=== PATIENT | female | born 1950 | race Caucasian/White ===

== ENCOUNTER 2017-08-27 08:39 | Outpatient (CLI) | payer OTHER ==
[~2017-08-27 08:39] MED LIST: SYNTHROID112 MCG
== END 2017-08-27 08:48 | disposition home or self-care (01) ==
LOC: LAB 08:39
DX: I10 Essential (primary) hypertension (principal); E78.89 Other lipoprotein metabolism disorders; E03.8 Other specified hypothyroidism; K21.9 Gastro-esophageal reflux disease without esophagitis

== ENCOUNTER 2017-08-27 11:55 | Outpatient (CLI) | payer OTHER | END 2017-08-27 12:10 | disposition home or self-care (01) | LOC: MAMO-SONO 11:55 | DX: Z12.31 Encounter for screening mammogram for malignant neoplasm of breast (principal); E78.89 Other lipoprotein metabolism disorders; E03.8 Other specified hypothyroidism; I10 Essential (primary) hypertension; K21.9 Gastro-esophageal reflux disease without esophagitis ==

== ENCOUNTER 2019-02-17 13:20 | Outpatient (CLI) | payer OTHER | END 2019-02-17 13:26 | disposition home or self-care (01) | LOC: MAMO-SONO 13:20 | DX: E78.49 Other hyperlipidemia (principal); E03.8 Other specified hypothyroidism; K21.9 Gastro-esophageal reflux disease without esophagitis; I11.9 Hypertensive heart disease without heart failure; E78.3 Hyperchylomicronemia; E46 Unspecified protein-calorie malnutrition; E44.0 Moderate protein-calorie malnutrition; Z12.31 Encounter for screening mammogram for malignant neoplasm of breast ==

== ENCOUNTER 2020-02-24 13:44 | Outpatient (CLI) | payer OTHER | END 2020-02-24 13:54 | disposition home or self-care (01) | LOC: MAMO-SONO 13:44 | PROVIDERS: ATTEND Internal Medicine | DX: Z12.31 Encounter for screening mammogram for malignant neoplasm of breast (principal); E03.8 Other specified hypothyroidism; E78.89 Other lipoprotein metabolism disorders; K21.9 Gastro-esophageal reflux disease without esophagitis; I11.9 Hypertensive heart disease without heart failure; E78.3 Hyperchylomicronemia; E46 Unspecified protein-calorie malnutrition; E44.0 Moderate protein-calorie malnutrition; E78.49 Other hyperlipidemia ==

== ENCOUNTER 2020-06-14 10:11 | Outpatient (CLI) | payer OTHER | END 2020-06-14 10:13 | disposition home or self-care (01) | LOC: NUCLEAR 10:11 | PROVIDERS: ATTEND Internal Medicine | DX: M81.0 Age-related osteoporosis without current pathological fracture (principal) ==

== ENCOUNTER 2021-03-15 11:01 | Outpatient (CLI) | payer OTHER | END 2021-03-15 11:11 | disposition home or self-care (01) | LOC: MAMO-SONO 11:01 | PROVIDERS: ATTEND Emergency Medicine Pediatric Emergency Medicine | DX: R92.1 Mammographic calcification found on diagnostic imaging of breast (principal); N64.59 Other signs and symptoms in breast; Z12.31 Encounter for screening mammogram for malignant neoplasm of breast; E55.9 Vitamin D deficiency, unspecified; E78.49 Other hyperlipidemia; I11.9 Hypertensive heart disease without heart failure; E78.3 Hyperchylomicronemia; E78.89 Other lipoprotein metabolism disorders; K21.9 Gastro-esophageal reflux disease without esophagitis; E03.8 Other specified hypothyroidism; I10 Essential (primary) hypertension ==

== ENCOUNTER 2022-03-16 12:58 | Outpatient (CLI) | payer OTHER | END 2022-03-16 13:09 | disposition home or self-care (01) | LOC: MAMO-SONO 12:58 | PROVIDERS: ATTEND Internal Medicine | DX: N60.11 Diffuse cystic mastopathy of right breast (principal); N60.12 Diffuse cystic mastopathy of left breast ==

== ENCOUNTER 2022-04-23 01:42 | Emergency (ER) | payer OTHER ==
[~2022-04-23] VITALS: Ht 157.5 cm; Wt 58.1 kg
== END 2022-04-23 05:27 | disposition home or self-care (01) ==
LOC: ER 01:42
DX: K29.70 Gastritis, unspecified, without bleeding (principal)

== ENCOUNTER → 2022-05-11 07:20 | Outpatient (CLI) | payer OTHER | END | disposition home or self-care (01) | LOC: LAB 07:20 | PROVIDERS: ATTEND Internal Medicine | DX: R10.13 Epigastric pain (principal); K80.12 Calculus of gallbladder with acute and chronic cholecystitis without obstruction; K82.9 Disease of gallbladder, unspecified; K80.20 Calculus of gallbladder without cholecystitis without obstruction ==

== ENCOUNTER → 2022-05-11 07:51 | Outpatient (CLI) | payer OTHER | END | disposition home or self-care (01) | LOC: SONOGRAMA 07:51 | PROVIDERS: ATTEND Internal Medicine | DX: R10.13 Epigastric pain (principal); K21.9 Gastro-esophageal reflux disease without esophagitis; E78.9 Disorder of lipoprotein metabolism, unspecified; E03.9 Hypothyroidism, unspecified; I11.9 Hypertensive heart disease without heart failure; E78.3 Hyperchylomicronemia; E78.2 Mixed hyperlipidemia; E46 Unspecified protein-calorie malnutrition; E44.0 Moderate protein-calorie malnutrition; E78.5 Hyperlipidemia, unspecified; E55.9 Vitamin D deficiency, unspecified; N18.2 Chronic kidney disease, stage 2 (mild) ==

== ENCOUNTER 2023-03-22 09:28 | Outpatient (CLI) | payer OTHER | END 2023-03-22 09:32 | disposition home or self-care (01) | LOC: MAMO-SONO 09:28 | PROVIDERS: ATTEND Internal Medicine | DX: E78.9 Disorder of lipoprotein metabolism, unspecified (principal); E03.9 Hypothyroidism, unspecified; K21.9 Gastro-esophageal reflux disease without esophagitis; I11.9 Hypertensive heart disease without heart failure; E78.3 Hyperchylomicronemia; E78.2 Mixed hyperlipidemia; E46 Unspecified protein-calorie malnutrition; E44.0 Moderate protein-calorie malnutrition; E78.5 Hyperlipidemia, unspecified; E55.9 Vitamin D deficiency, unspecified; N18.2 Chronic kidney disease, stage 2 (mild); R10.13 Epigastric pain; N60.12 Diffuse cystic mastopathy of left breast ==

== ENCOUNTER 2023-03-29 13:03 | Outpatient (CLI) | payer OTHER | END 2023-03-29 13:04 | disposition home or self-care (01) | LOC: NUCLEAR 13:03 | PROVIDERS: ATTEND Internal Medicine | DX: M81.0 Age-related osteoporosis without current pathological fracture (principal) ==

== ENCOUNTER 2023-05-01 12:45 | Outpatient (CLI) | payer OTHER | END 2023-05-01 12:48 | disposition home or self-care (01) | LOC: SONOGRAMA 12:45 | PROVIDERS: ATTEND Urology | DX: N28.1 Cyst of kidney, acquired (principal); Z88.0 Allergy status to penicillin; Z88.1 Allergy status to other antibiotic agents ==

== ENCOUNTER 2024-10-21 12:50 | Outpatient (CLI) | payer OTHER | END 2024-10-21 13:02 | disposition home or self-care (01) | LOC: MAMO-SONO 12:50 | PROVIDERS: ATTEND Internal Medicine | DX: N60.12 Diffuse cystic mastopathy of left breast (principal); N60.11 Diffuse cystic mastopathy of right breast; E78.9 Disorder of lipoprotein metabolism, unspecified; E03.9 Hypothyroidism, unspecified; K21.9 Gastro-esophageal reflux disease without esophagitis; I11.9 Hypertensive heart disease without heart failure; E78.3 Hyperchylomicronemia; E78.2 Mixed hyperlipidemia; E46 Unspecified protein-calorie malnutrition; E78.5 Hyperlipidemia, unspecified; E55.9 Vitamin D deficiency, unspecified; N18.2 Chronic kidney disease, stage 2 (mild); R10.13 Epigastric pain; E44.0 Moderate protein-calorie malnutrition ==